=== PATIENT | male | born 1950 | race Caucasian/White ===

== ENCOUNTER 2017-02-27 06:47 | Outpatient (CLI) | payer OTHER ==
[2017-02-27 08:10] LABS: ALBUMIN 3.8 g/dL (3.4-5.0); ANION GAP 17.4 (8-16); CALCIUM 9.1 mg/dL (8.5-10.1); CHOL/HDL RATIO 3.4 (1-4.5); CREATININE 1.3 mg/dL (0.7-1.3); POTASSIUM 4.4 mmol/L (3.5-5.1); TOTAL BILIRUBIN 0.3 mg/dL (0.0-1.0); TOTAL PROTEIN, SERUM 6.8 g/dL (6.4-8.2)
== END 2017-02-27 18:07 | disposition home or self-care (01) ==
LOC: MLB 06:47
PROVIDERS: ATTEND Family Medicine
DX: R73.9 Hyperglycemia, unspecified (principal)
CPT/HCPCS: 36415; 80053; 83036

== ENCOUNTER 2017-09-07 21:32 | Inpatient (IN) | payer OTHER ==
[~2017-09-07] VITALS: Ht 190.5 cm; Wt 102.1 kg
[2017-09-07 21:33] VITALS: BP 143/89
--- NOTE | 2017-09-07 21:33 | NUR ---
PT TAKEN TO BED 2
--- NOTE | 2017-09-07 21:33 | NUR ---
Patient being evaluated by physician at bedside.
[2017-09-07] MEDS ORDERED: ALBUTEROL SULFATE/IPRATROPIU 3 ML SOL IH ONE (21:35)
[2017-09-07] MEDS ORDERED: ALBUTEROL 0.083% 2.5 MG/3 ML NEBU INH ONE ×3 (21:45→22:54)
--- NOTE | 2017-09-07 21:53 | NUR ---
66 Y/O M W/C/O RESP DISTRESS AND WHEEZES X 3 HRS AGO. MED HX COPD, ASTHMA AND HTN.
--- NOTE | 2017-09-07 22:10 | NUR ---
IV 18GA RT A/C DONE, BLOOD TUBES AND 2 BLOOD FOR C&S SENT.
[2017-09-07] MEDS ORDERED: MAG SULF 2000 MG/WATER PREMIX 50 ML IV ONE ×2 (22:30)
--- NOTE | 2017-09-07 22:38 | NUR ---
PT MOVED TO BED 1
[2017-09-07] MEDS ORDERED: NACL 0.9% 1,000 ML IV SCH (23:06)
[2017-09-07 23:07] LABS: ANION GAP 17.1 (8-16); CARBON DIOXIDE 23.7 mmol/L (21-32); CREATININE 1.3 mg/dL (0.7-1.3); POTASSIUM 3.8 mmol/L (3.5-5.1)
[2017-09-07 23:08] LABS: BASOPHILS # (AUTO) 0.2 K/uL (0.00-0.22); EOSINOPHILS # (AUTO) 0.1 K/uL (0-0.4); EOSINOPHILS % (AUTO) 0.7 % (0.0-4.0); HEMATOCRIT 41.8 % (36-52); LYMPHOCYTES # (AUTO) 0.7 K/uL (2.0-11.5); MEAN CORPUSCULAR HEMOGLOBIN 29 pg (27-31); MEAN CORPUSCULAR HGB CONC 34 g/dL (33-37); MEAN CORPUSCULAR VOLUME 87 fL (80-94); MONOCYTES # (AUTO) 0.8 K/uL (0.8-1.0); MONOCYTES % (AUTO) 7.8 % (1.7-9.3); NEUTROPHILS # (AUTO) 8.5 K/uL (1.8-7.7); NEUTROPHILS % (AUTO) 82.9 % (42.2-75.2); PLATELET COUNT (AUTO) 245 K/uL (140-450); RED BLOOD CELL COUNT(AUTO) 4.81 MIL/uL (4.20-6.10); RED CELL DISTRIBUTION WIDTH 14.1 % (11.6-13.7); WHITE BLOOD COUNT (AUTO) 10.3 K/uL (4.8-10.8)
[2017-09-07] MEDS ORDERED: ONDANSETRON 4 MG/2 ML VIAL IVP PRN (23:10)
[2017-09-07] MEDS ORDERED: ACETAMINOPHEN 325 MG TAB PO PRN (23:10)
[2017-09-07] MEDS ORDERED: ALBUTEROL SULFATE/IPRATROPIU 3 ML SOL IH PRN (23:10)
[2017-09-07] MEDS ORDERED: HYDROcodone/APAP 7.5/325 MG 1 TAB PO PRN (23:10)
[2017-09-07 23:14] LABS: ALBUMIN 3.7 g/dL (3.4-5.0); TOTAL BILIRUBIN 0.2 mg/dL (0.0-1.0)
[2017-09-07] MEDS ORDERED: LEVOFLOXACIN 750 MG/D5W PREMIX 150 ML IV ONE ×2 (23:20→23:47)
[2017-09-07] MEDS ORDERED: NACL 0.9% 3,000 ML IV ONE (23:20)
[2017-09-07 23:22] LABS: LYMPHOCYTES % (AUTO) 6.6 % (20.5-51.1)
[2017-09-07] MEDS ORDERED: ACLI400A1 IH (23:28)
[2017-09-07] MEDS ORDERED: BENA20TA PO (23:28)
[2017-09-07] MEDS ORDERED: ATRMDI IH (23:28)
[2017-09-07] MEDS ORDERED: ALBU-118 IH (23:28)
[2017-09-07] MEDS ORDERED: LANS15EC28 PO (23:28)
[2017-09-07 23:36] LABS: PROTHROMBIN TIME 9.8 secs (10.8-13.4)
--- NOTE | 2017-09-08 00:16 | NUR ---
PT TRANSPORTED TO FLOOR VIA GURNEY, ACCOMPANIED BY RN AND EMT. NO S/S OF DISTRESS NOTED DURING TRANSPORT.
[2017-09-08 00:27] LABS: APPEARANCE,URINE CLEAR (CLEAR); BILIRUBIN,URINE NEGATIVE (NEGATIVE); BLOOD, URINE NEGATIVE (NEGATIVE); COLOR,URINE YELLOW (YELLOW); LEUKOCYTE ESTERASE ,URINE NEGATIVE (NEGATIVE); NITRITE, URINE NEGATIVE (NEGATIVE); UGLUCOSE NEGATIVE (NEGATIVE)
[2017-09-08 00:30] VITALS: BP 130/80
--- NOTE | 2017-09-08 00:30 | NUR ---
PT ARRIVED AT UNIT FROM ER, NO DISTRESS NOTED, STABLE, REPORT RECEIVED FROM RN, IV TO L HAND 18G RUNNING NS BOLUS AND LEVAQUIN @ 100ML/HR AND R AC 20 G RUNNING NS BOLUS, SKIN INTACT, PT [id number], PT ON 2LPM O2 VIA NC, NO SOB AT THIS TIME. INITIAL ASSESSMENT DONE, ALL SAFETY PRECAUTION MET, WILL CONTINUE TO MONITOR.
[2017-09-08 00:36] LABS: BARBITURATE, URINE NEG. ng/ml (NEG <=200); BENZODIAZEPINE, URINE NEG. ng/mL (NEG <=200); CANNABINOID, URINE NEG. ng/mL (NEG <=50); COCAINE, URINE NEG. ng/mL (NEG <=300); OPIATE, URINE NEG. ng/mL (NEG <=2000); PHENCYCLIDINE SCREEN,URINE NEG. ng/mL (NEG <=25)
[2017-09-08] MEDS ORDERED: CLINDAMYCIN 600 MG/4 ML VIAL ONE ×2 (00:41→04:33)
[2017-09-08 00:42] LABS: CHOL/HDL RATIO 2.3 (1-4.5); FREE T4 (FREE THYROXINE) 0.91 ng/dL (0.76-1.46); PHOSPHORUS 2.2 mg/dL (2.5-4.9); THYROID STIMULATING HORMONE 1.31 uIU/mL (0.34-3.74)
[2017-09-08] MEDS ORDERED: SIMV40TA1 PO (01:28)
[2017-09-08] MEDS: CLINDAMYCIN 600 MG in DEXTROSE 5% 50 ML IV SCH ×2 (01:41→06:17)
--- NOTE | 2017-09-08 01:41 | NUR ---
DUE MEDICATION GIVEN, PT TOLERATED WELL, NO DISTRESS NOTED, CALL LIGHT WITHIN REACH, WILL CONTINUE TO MONITOR.
--- NOTE | 2017-09-08 02:14 | NUR ---
RECEIVED REPORT OF LACTIC ACID CRITICAL VALUE OF 2.9, NOTIFIED DR. UBRGER, STATED UNDERSTANDING, NO CHANGE IN ORDERS.
[2017-09-08 04:00] VITALS: BP 100/51
[2017-09-08] MEDS ORDERED: SODIUM PHOS / POTASSIUM PHOS 1 PKT PDR PO SCH (06:00)
--- NOTE | 2017-09-08 06:17 | NUR ---
DUE MEDICATION GIVEN, PT TOLERATED WELL, NO DISTRESS NOTED, CALL LIGHT WITHIN REACH, WILL CONTINUE TO MONITOR.
[2017-09-08 06:54] LABS: HEMATOCRIT 39.2 % (36-52); HEMOGLOBIN 13.4 g/dL (12.0-18.0); MEAN CORPUSCULAR HEMOGLOBIN 30 pg (27-31); MEAN CORPUSCULAR HGB CONC 34 g/dL (33-37); MEAN CORPUSCULAR VOLUME 87 fL (80-94); PLATELET COUNT (AUTO) 251 K/uL (140-450); RED BLOOD CELL COUNT(AUTO) 4.51 MIL/uL (4.20-6.10); RED CELL DISTRIBUTION WIDTH 14.3 % (11.6-13.7); WHITE BLOOD COUNT (AUTO) 8.6 K/uL (4.8-10.8)
[2017-09-08 07:00] LABS: ANION GAP 14.8 (8-16); CARBON DIOXIDE 23.1 mmol/L (21-32); CREATININE 1.1 mg/dL (0.7-1.3); POTASSIUM 4.9 mmol/L (3.5-5.1)
[2017-09-08] MEDS ORDERED: ALBUTEROL SULFATE/IPRATROPIU 3 ML SOL IH SCH (07:00)
[2017-09-08] MEDS ORDERED: ALBUTEROL SULFATE/IPRATROPIU 3 ML SOL IH ONE ×2 (07:04→09:57)
[2017-09-08 07:11] LABS: MAGNESIUM 2.3 mg/dL (1.8-2.4); PHOSPHORUS 2.7 mg/dL (2.5-4.9)
--- NOTE | 2017-09-08 07:30 | NUR ---
BEDSIDE REPORT GIVEN TO DAY SHIFT NURSE LEVAR RN, PT STABLE, NO DISTRESS NOTED, CALL LIGHT WITHIN REACH
--- NOTE | 2017-09-08 07:40 | NUR ---
RECEIVED REPORT FROM NIGHT NURSE AT PT BEDSIDE. PATIENT IS AWAKE AND ALERT. FOLLOWS COMMANDS. DENIES PAIN. BILATERAL WHEEZES HEARD, RT NOTIFIED FOR BREATHING TREATMENT. CALL LIGHT WITHIN REACH.
[2017-09-08 08:00] VITALS: BP 135/77
[2017-09-08] MEDS ORDERED: PANTOPRAZOLE 40 MG TABEC PO SCH (09:00)
[2017-09-08] MEDS ORDERED: LACTOBACILLUS RHAMNOSUS GG 1 EACH CAP PO SCH (09:00)
[2017-09-08] MEDS ORDERED: PANTOPRAZOLE 40 MG INJ VIAL IVP SCH (09:00)
[2017-09-08] MEDS ORDERED: BENAZEPRIL 20 MG TAB PO SCH (09:00)
[2017-09-08] MEDS ORDERED: DOCUSATE SODIUM 100 MG GELCAP PO SCH (09:00)
[2017-09-08] MEDS ORDERED: SIMVASTATIN 40 MG TAB PO SCH (09:00)
[2017-09-08] MEDS ORDERED: methylPREDNISolone SS 125 MG/2 ML VIAL IVP SCH (09:00)
--- NOTE | 2017-09-08 09:02 | NUR ---
PATIENT HAS BEEN SCREENED AND CATEGORIZED LOW NUTRITION RISK. PATIENT WILL BE SEEN WITHIN 7 DAYS OF ADMISSION. 09/13/[address]
[2017-09-08] MEDS ORDERED: PANTOPRAZOLE 40 MG INJ VIAL IVP ONE (09:06)
[2017-09-08] MEDS ORDERED: DOCUSATE SODIUM 100 MG GELCAP PO ONE (09:06)
[2017-09-08] MEDS ORDERED: SODIUM PHOS / POTASSIUM PHOS 1 PKT PDR ONE (09:07)
[2017-09-08] MEDS ORDERED: methylPREDNISolone SS 40 MG/ML VIAL ONE (09:07)
[2017-09-08] MEDS ORDERED: SIMVASTATIN 40 MG TAB ONE (09:07)
[2017-09-08] MEDS ORDERED: BENAZEPRIL 20 MG TAB ONE (09:07)
[2017-09-08] MEDS ORDERED: methylPREDNISolone SS 125 MG/2 ML VIAL ONE (09:17)
[2017-09-08] MEDS ORDERED: LACTOBACILLUS RHAMNOSUS GG 1 EACH CAP ONE (09:17)
[2017-09-08 09:50] LABS: EOSINOPHILS % (MANUAL) 2 % (0-4); LYMPHOCYTES % (MANUAL) 8 % (20-46); MONOCYTES % (MANUAL) 7 % (5-12)
--- NOTE | 2017-09-08 10:28 | NUR ---
PATIENT HAD ECHO AT BEDSIDE. TOLERATED PO MEDICATIONS. PATIENT HAD BREATHING TREATMENT BY RT AT BEDSIDE. PATIENT SLEEPING, EASILY AWAKENS. NO S/S OF ACUTE DISTRESS NOTED.
[2017-09-08] MEDS ORDERED: ALBU-118 IH (11:08)
[2017-09-08] MEDS ORDERED: FLOR250 PO (11:09)
[2017-09-08] MEDS ORDERED: LORA10TA19 PO (11:09)
[2017-09-08] MEDS ORDERED: FAMO20TA13 PO (11:09)
[2017-09-08] MEDS ORDERED: MONT10TA35 PO (11:09)
[2017-09-08] MEDS ORDERED: METH4TAB3 PO (11:09)
[2017-09-08] MEDS ORDERED: LEVO750T2 PO (11:09)
--- NOTE | 2017-09-08 12:00 | NUR ---
PATIENT WAS SEEN BY DR. CLEMENTE AT PT BEDSIDE. PATIENT TO BE DISCHARGED HOME WITH NEW PRESCRIPTIONS. MEDICATION TEACHING GIVEN WITH VERBALIZED UNDERSTANDING. AT BEDSIDE TO TAKE PT HOME. PATIENT IV REMOVED, CANULA INTACT. AMBULATORY. NO S/S OF ACUTE RESPIRATORY DISTRESS. DENIES DISCOMFORT. F/U TEACHING GIVEN WITH APPOINTMENT TEACHING. PATIENT WHEELED TO FRONT LOBBY.
[2017-09-08] MEDS ORDERED: LEVOFLOXACIN 750 MG/D5W PREMIX 150 ML IV SCH (21:00)
[2017-09-09] MEDS ORDERED: methylPREDNISolone SS 40 MG/ML VIAL IVP SCH (09:00)
== END 2017-09-08 12:00 | disposition home or self-care (01) | DRG 189 ==
LOC: MED 21:32 → MTU 23:15 → UNDOADMIN 23:15
PROVIDERS: ADMIT Family Medicine Sports Medicine; ATTEND Family Medicine Sports Medicine
DX: J96.01 Acute respiratory failure with hypoxia (principal); E87.0 Hyperosmolality and hypernatremia; E87.2 Acidosis; J44.1 Chronic obstructive pulmonary disease with (acute) exacerbation; J45.901 Unspecified asthma with (acute) exacerbation; E83.39 Other disorders of phosphorus metabolism; K21.9 Gastro-esophageal reflux disease without esophagitis; I10 Essential (primary) hypertension; F17.210 Nicotine dependence, cigarettes, uncomplicated; E86.0 Dehydration; E78.5 Hyperlipidemia, unspecified; Z88.1 Allergy status to other antibiotic agents; Z88.2 Allergy status to sulfonamides
CPT/HCPCS: 36415; 71045; 80048; 80053; 80305; 81003; 83036; 83605; 83735; 83880; 84100; 84439; 84443; 84484; 85025; 85610; 85730; 87040; 87081; 87086; 87186; 87804; 93005; 94640; 96365; 96367; 99285; C9113; J1956; J2920; J2930; J3475; J3490; J7060; J7613; J7620; Q0092

== ENCOUNTER 2017-10-22 07:00 | Outpatient (CLI) | payer OTHER ==
[~2017-10-22 07:00] MED LIST: ACLI400A1 IH; ALBU-118 IH; ATRMDI IH; BENA20TA PO; FAMO20TA13 PO; FLOR250 PO; LANS15EC28 PO; LEVO750T2 PO; LORA10TA19 PO; METH4TAB3 PO; MONT10TA35 PO; SIMV40TA1 PO
[2017-10-22 08:38] LABS: FREE T4 (FREE THYROXINE) 0.95 ng/dL (0.76-1.46); THYROID STIMULATING HORMONE 2.61 uIU/mL (0.34-3.74)
== END 2017-10-22 17:08 | disposition home or self-care (01) ==
LOC: MLB 07:00
PROVIDERS: ATTEND Family Medicine
DX: Z13.9 Encounter for screening, unspecified (principal); E05.90 Thyrotoxicosis, unspecified without thyrotoxic crisis or storm
CPT/HCPCS: 36415; 84153; 84439; 84443

== ENCOUNTER 2018-07-25 06:45 | Outpatient (CLI) | payer OTHER ==
[2018-07-25 07:18] LABS: BASOPHILS # (AUTO) 0.1 K/uL (0.00-0.22); BASOPHILS % (AUTO) 0.7 % (0.0-2.0); EOSINOPHILS # (AUTO) 0.2 K/uL (0-0.4); EOSINOPHILS % (AUTO) 1.7 % (0.0-4.0); HEMATOCRIT 43.7 % (36-52); HEMOGLOBIN 14.2 g/dL (12.0-18.0); LYMPHOCYTES % (AUTO) 10.4 % (20.5-51.1); MEAN CORPUSCULAR HEMOGLOBIN 29 pg (27-31); MEAN CORPUSCULAR HGB CONC 33 g/dL (33-37); MEAN CORPUSCULAR VOLUME 88.3 fL (80-94); MONOCYTES # (AUTO) 0.3 K/uL (0.8-1.0); MONOCYTES % (AUTO) 3.4 % (1.7-9.3); NEUTROPHILS # (AUTO) 8.1 K/uL (1.8-7.7); NEUTROPHILS % (AUTO) 83.8 % (42.2-75.2); PLATELET COUNT (AUTO) 286 K/uL (140-450); RED BLOOD CELL COUNT(AUTO) 4.95 MIL/uL (4.20-6.10); WHITE BLOOD COUNT (AUTO) 9.7 K/uL (4.8-10.8)
[2018-07-25 09:12] LABS: ALBUMIN 3.7 g/dL (3.4-5.0); ANION GAP 15.9 (8-16); CARBON DIOXIDE 23.2 mmol/L (21-32); CHOL/HDL RATIO 2.3 (1-4.5); CREATININE 1.2 mg/dL (0.7-1.3); POTASSIUM 4.1 mmol/L (3.5-5.1); THYROID STIMULATING HORMONE 2.07 uIU/mL (0.34-3.74); TOTAL BILIRUBIN 0.3 mg/dL (0.0-1.0)
== END 2018-07-25 21:47 | disposition home or self-care (01) ==
LOC: MLB 06:45
PROVIDERS: ATTEND Family Medicine
DX: E78.5 Hyperlipidemia, unspecified (principal); I10 Essential (primary) hypertension; E11.65 Type 2 diabetes mellitus with hyperglycemia; J44.9 Chronic obstructive pulmonary disease, unspecified; K21.9 Gastro-esophageal reflux disease without esophagitis; Z72.0 Tobacco use
CPT/HCPCS: 36415; 80053; 83036; 84154; 84443; 85025

== ENCOUNTER 2018-12-26 11:59 | Outpatient (CLI) | payer OTHER, BC ==
[~2018-12-26 11:59] MED LIST changes: -ACLI400A1 IH; +ACLI400A2 IH
[2018-12-26 13:11] LABS: ANION GAP 11.2 (8-16); CREATININE 1.2 mg/dL (0.7-1.3); POTASSIUM 4.2 mmol/L (3.5-5.1)
[2018-12-26 13:18] LABS: ALBUMIN 3.9 g/dL (3.4-5.0); CHOL/HDL RATIO 3.3 (1-4.5); TOTAL BILIRUBIN 0.3 mg/dL (0.0-1.0)
== END 2018-12-26 20:21 | disposition home or self-care (01) ==
LOC: MLB 11:59
PROVIDERS: ATTEND Family Medicine
DX: I10 Essential (primary) hypertension (principal); E11.9 Type 2 diabetes mellitus without complications; E78.5 Hyperlipidemia, unspecified; Z88.2 Allergy status to sulfonamides; Z88.8 Allergy status to other drugs, medicaments and biological substances; J44.9 Chronic obstructive pulmonary disease, unspecified; Z79.899 Other long term (current) drug therapy
CPT/HCPCS: 36415; 80053; 82306; 83036; 84154